=== PATIENT | female | born 1980 | race Caucasian/White ===

== ENCOUNTER 2018-07-31 20:04 | Inpatient (IN) | payer BC, OTHER ==
[2018-07-31 21:33] VITALS: BMI 33.5
[2018-07-31] MEDS ORDERED: MELATONIN 5 MG TABLETS PO PRN (22:00)
--- NOTE | 2018-07-31 23:06 | HP ---
CIWA Score - CIWA Score Nausea/Vomitin Muscle Tremors: 4-Moderate,w/Arms Extend Anxiety: 3 Agitation: 3 Paroxysmal Sweats: 1-Minimal Palms Moist Orientation: 0-Oriented Tacttile Disturbances: 0-None Auditory Disturbances: 0-None Visual Disturbances: 0-None Headache: 3-Moderate CIWA-Ar Total Score: 17 Admission ROS S - HPI Chief Complaint: Alcohol withdrawal symptoms Allergies/Adverse Reactions: Allergies Allergy/AdvReac Type Severity Reaction Status Date / Time No Known Allergies Allergy Verified 07/31/18 22:26 History of Present Illness: 38 years old female patient with 23 years of alcohol dependence is seeking admission to detox. This is patient's first admission to [facility] and first detox. She reports history of depression and denies suicidal ideation at this time. Exam Limitations: No Limitations - Ebola screening Have you traveled outside of the country in the last 21 days: No (N) Have you had contact with anyone from an Ebola affected area: No Have you been sick,other than usual withdrawal symptoms: No Do you have a fever: No - Review of Systems Constitutional: Chills, Loss of Appetite, Malaise, Changes in sleep, Weakness EENT: reports: No Symptoms Reported Respiratory: reports: No Symptoms reported Cardiac: reports: No Symptoms Reported GI: reports: No Symptoms Reported, Nausea, Poor Appetite, Poor Fluid Intake, Abdominal cramping : reports: No Symptoms Reported, Discharge Musculoskeletal: reports: No Symptoms Reported Integumentary: reports: Dryness Neuro: reports: Headache, Numbness, Tingling, Tremors Endocrine: reports: No Symptoms Reported Hematology: reports: No Symptoms Reported Psychiatric: reports: Orientated x3, Depressed Other Systems: Reviewed and Negative Patient History - Patient Medical History Hx Anemia: No Hx Asthma: No Hx Chronic Obstructive Pulmonary Disease (COPD): No Hx Cancer: No Hx Cardiac Disorders: No Hx Congestive Heart Failure: No Hx Hypertension: No Hx Hypercholesterolemia: No Hx Pacemaker: No HX Cerebrovascular Accident: No Hx Seizures: No Hx Dementia: No Hx Diabetes: No Hx Gastrointestinal Disorders: No Hx Genitourinary Disorders: No Hx Sexually Transmitted Disorders: No Hx Renal Disease (ESRD): No Hx Thyroid Disease: No Hx Human Immunodeficiency Virus (HIV): No (Negative 2017) Hx Hepatitis C: No Hx Depression: Yes (Not on medication.) Hx Suicide Attempt: No Hx Bipolar Disorder: No Hx Schizophrenia: No - Patient Surgical History Past Surgical History: No Hx Neurologic Surgery: No Hx Cataract Extraction: No Hx Cardiac Surgery: No Hx Lung Surgery: No Hx Breast Surgery: No Hx Breast Biopsy: No Hx Abdominal Surgery: No Hx Appendectomy: No Hx Cholecystectomy: No Hx Genitourinary Surgery: No Hx Section: No Hx Orthopedic Surgery: No Anesthesia Reaction: No - PPD History Previous Implant?: Yes Documented Results: Negative w/o proof Implanted On Prior [facility] Admission?: No Date: 07/31/18 PPD to be Administered?: No - Reproductive History Patient is a Female of Child Bearing Age (11 -55 yrs old): Yes Last Menstrual Period: 07/18/18 Patient : No - Smoking Cessation Smoking history: Former smoker Have you smoked in the past 12 months: No Hx Chewing Tobacco Use: No Initiated information on smoking cessation: No - Substance & Tx. History Hx Alcohol Use: Yes Hx Substance Use: No Substance Use Type: Alcohol Hx Substance Use Treatment: No - Substances Abused Alcohol Route: Oral Frequency: Daily Amount used: 6 SHOTS OF VODKA Age of first use: 27 Date of Last Use: 07/31/18 Family Disease History - Family Disease History Family History: Denies Admission Physical Exam [facility] - Vital Signs Vital Signs: Vital Signs - 24 hr 07/31/18 21:31 Temperature 98.6 F Pulse Rate 83 Respiratory 18 Rate Blood Pressure 122/84 - Physical General Appearance: Yes: Moderate Distress HEENTM: Yes: EOMI, Normal ENT Inspection, Normocephalic, Normal Voice, SEMAJ Respiratory: Yes: Lungs Clear, Normal Breath Sounds, No Respiratory Distress Neck: Yes: Supple Breast: Yes: Breast Exam Deferred Cardiology: Yes: Regular Rhythm, Regular Rate Abdominal: Yes: Normal Bowel Sounds, Flat Genitourinary: Yes: Within Normal Limits Back: Yes: Normal Inspection Musculoskeletal: Yes: Within Normal Limits Extremities: Yes: Tremors 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
[2018-07-31] MEDS ORDERED: MAGNESIUM HYDROX 2400MG/30ML ORAL SUSPENSION 30 ML CUP PO PRN (23:16)
[2018-07-31] MEDS ORDERED: guaiFENesin/D-METHORPHAN HB 10 ML UNIT-DOSE CUPS PO PRN (23:16)
[2018-07-31] MEDS ORDERED: chlordiazePOXIDE HCL 25 MG CAPSULE PO PRN (23:16)
[2018-07-31] MEDS ORDERED: MENTHOL/PHENOL 1 EACH UD MM PRN (23:16)
[2018-07-31] MEDS ORDERED: P-EPHED 60MG/TRIPROLIDI 2.5MG TABLET PO PRN (23:16)
[2018-07-31] MEDS ORDERED: LOPERAMIDE HCL 2 MG CAPSULE PO PRN (23:16)
[2018-07-31] MEDS ORDERED: MAGNESIUM CITRATE 300 ML BOTTLE PO PRN (23:16)
[2018-07-31] MEDS ORDERED: MAG HYDROX/AL HYDROX/SIMETH 30 ML UNIT-DOSE CUP PO PRN (23:16)
[2018-07-31] MEDS: chlordiazePOXIDE HCL 25 MG CAPSULE PO SCH (23:57)
[2018-08-01] MEDS: chlordiazePOXIDE HCL 25 MG CAPSULE PO SCH ×4 (06:27→22:11)
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
[2018-08-01 10:12] LABS: HEMOGLOBIN 13.3 GM/dL (10.7-15.3); MCH 30.7 pg (25.7-33.7); MCHC 32.5 g/dl (32.0-36.0); MEAN CELL VOLUME 94.3 fl (80-96); MEAN PLT VOLUME 8.3 fl (7.5-11.1); PLATELET COUNT 225 K/MM3 (134-434); RBC 4.34 M/mm3 (3.60-5.2); RDW 13.1 % (11.6-15.6); WHITE BLOOD COUNT 4.1 K/mm3 (4.0-10.0)
[2018-08-01 10:31] LABS: ALBUMIN 3.6 g/dl (3.4-5.0); ALK PHOS 77 U/L (45-117); ANION GAP 10 MMOL/L (8-16); BILIRUBIN,TOTAL 0.4 mg/dL (0.2-1); BLOOD UREA NITROGEN 10 mg/dL (7-18); CHLORIDE 106 mmol/L (98-107); CO2 26 mmol/L (21-32); CREATININE 0.5 mg/dL (0.55-1.3); GLUCOSE,RANDOM 86 mg/dL (74-106); POTASSIUM 3.9 mmol/L (3.5-5.1); SGOT/AST 61 U/L (15-37); SGPT/ALT 77 U/L (13-61); SODIUM 142 mmol/L (136-145)
[2018-08-01] MEDS: PRENATAL VITAMINS W/ FOLIC ACID TABLET (FP) PO SCH (10:43)
[2018-08-01] MEDS: ACETAMINOPHEN 325 MG TABLET (FP) PO PRN (10:45)
[2018-08-01] MEDS ORDERED: FLU VACCINE QUAD 60 MCG/0.5 ML (MDV 18-19) IM ONE (12:00)
--- NOTE | 2018-08-01 12:56 | PN ---
S CIWA - CIWA Score Nausea/Vomitin-Mild Nausea/No Vomiting Muscle Tremors: 2 Anxiety: 2 Agitation: 2 Paroxysmal Sweats: No Perspiration Orientation: 0-Oriented Tacttile Disturbances: 0-None Auditory Disturbances: 0-None Visual Disturbances: 0-None Headache: 3-Moderate CIWA-Ar Total Score: 10 BHS Progress Note (SOAP) Subjective: PATIENT C/O MILD NAUSEA, HEADACHE, ANXIETY AND RESTLESSNESS. Objective: 08/01/18 12:54 Laboratory Tests 08/01/18 08/01/18 08/01/18 07:00 07:00 07:00 WBC 4.1 RBC 4.34 Hgb 13.3 Hct 41.0 MCV 94.3 MCH 30.7 MCHC 32.5 RDW 13.1 Plt Count 225 MPV 8.3 Sodium 142 Potassium 3.9 Chloride 106 Carbon Dioxide 26 Anion Gap 10 BUN 10 Creatinine 0.5 L Creat Clearance w eGFR > 60 Random Glucose 86 Calcium 9.0 Total Bilirubin 0.4 AST 61 H ALT 77 H Alkaline Phosphatase 77 Total Protein 7.0 Albumin 3.6 RPR Titer HIV 1&2 Antibody Screen Negative HIV P24 Antigen Negative 08/01/18 07:00 WBC RBC Hgb Hct MCV MCH MCHC RDW Plt Count MPV Sodium Potassium Chloride Carbon Dioxide Anion Gap BUN Creatinine Creat Clearance w eGFR Random Glucose Calcium Total Bilirubin AST ALT Alkaline Phosphatase Total Protein Albumin RPR Titer Nonreactive HIV 1&2 Antibody Screen HIV P24 Antigen Vital Signs Temperature 98.4 F 08/01/18 09:05 Pulse Rate 75 08/01/18 09:05 Respiratory Rate 18 08/01/18 09:05 Blood Pressure 107/73 08/01/18 09:05 O2 Sat by Pulse Oximetry (%) SKIN WARM AND DRY CAR S1S2 RESP CTA BL EXT FULL ROM +TREMORS ALERT AND ORIENTED X 3. 08/01/18 12:55 Assessment: 08/01/18 12:55 WITHDRAWAL SX Plan: CONTINUE DETOX ENCOURAGE ORAL FLUIDS CONTINUE TO MONITOR CLINICALLY
[2018-08-01 14:31] LABS: URINE APPEARANCE CLOUDY; URINE BILIRUBIN NEGATIVE (<2.0 mg/dL); URINE GLUCOSE (UA) NEGATIVE (NEGATIVE); URINE KETONE NEGATIVE (NEGATIVE); URINE LEUK ESTERASE NEGATIVE (NEGATIVE); URINE NITRITE NEGATIVE (NEGATIVE); URINE PROTEIN NEGATIVE (NEGATIVE); URINE UROBILINOGEN NEGATIVE mg/dL (0.2-1.0)
[2018-08-01 14:40] LABS: URINE COLOR YELLOW
[2018-08-01] MEDS: THIAMINE HCL 100 MG TABLET (FP) PO SCH (22:11)
[2018-08-02] MEDS: chlordiazePOXIDE HCL 25 MG CAPSULE PO SCH ×3 (05:14→20:53)
[2018-08-02] MEDS: PRENATAL VITAMINS W/ FOLIC ACID TABLET (FP) PO SCH (10:08)
--- NOTE | 2018-08-02 18:11 | EKG ---
Test Reason : Blood Pressure : / mmHG Vent. Rate : 063 BPM Atrial Rate : 063 BPM P-R Int : 134 ms QRS Dur : 094 ms QT Int : 428 ms P-R-T Axes : 048 027 043 degrees QTc Int : 437 ms NORMAL SINUS RHYTHM NORMAL ECG NO PREVIOUS ECGS AVAILABLE Confirmed by DARON PARHAM MD ([id number]) on 08/02/2018 6:11:04 PM Referred By: Confirmed By:DARON PARHAM MD
--- NOTE | 2018-08-02 20:15 | PN ---
BHS CIWA - CIWA Score Nausea/Vomitin Muscle Tremors: 3 Anxiety: 3 Agitation: 2 Paroxysmal Sweats: 3 Orientation: 0-Oriented Tacttile Disturbances: 0-None Auditory Disturbances: 0-None Visual Disturbances: 0-None Headache: 0-None Present CIWA-Ar Total Score: 13 BHS Progress Note (SOAP) Subjective: shakes sweats sleep disturbance Objective: 08/02/18 20:14 A & O x 3 Ambulates steadily Vital Signs - 8 hr 08/02/18 08/02/18 14:04 18:17 Temperature 98.3 F 96.3 F L Pulse Rate 80 77 Respiratory 18 18 Rate Blood Pressure 95/66 113/79 Assessment: 08/02/18 20:15 withdrawal sx Plan: continue detox
[2018-08-02] MEDS: chlordiazePOXIDE 5 MG CAPSULE PO SCH (22:24)
[2018-08-02] MEDS: THIAMINE HCL 100 MG TABLET (FP) PO SCH (22:25)
[2018-08-02] MEDS: IBUPROFEN 400 MG TABLET (FP) PO PRN (22:26)
[2018-08-03] MEDS: chlordiazePOXIDE 5 MG CAPSULE PO SCH ×3 (05:18→20:31)
[2018-08-03] MEDS: PRENATAL VITAMINS W/ FOLIC ACID TABLET (FP) PO SCH (10:23)
[2018-08-03] MEDS: ACETAMINOPHEN 325 MG TABLET (FP) PO PRN (10:25)
--- NOTE | 2018-08-03 10:26 | PN ---
BHS Progress Note (SOAP) Subjective: feeling better no tremor less sweat sleep better at night f requests to see a psychiatrist Objective: 08/03/18 10:25 Vital Signs Temperature 97.2 F L 08/03/18 09:32 Pulse Rate 88 08/03/18 09:32 Respiratory Rate 18 08/03/18 09:32 Blood Pressure 98/73 08/03/18 09:32 O2 Sat by Pulse Oximetry (%) Laboratory Last Values WBC 4.1 K/mm3 (4.0-10.0) 08/01/18 07:00 RBC 4.34 M/mm3 (3.60-5.2) 08/01/18 07:00 Hgb 13.3 GM/dL (10.7-15.3) 08/01/18 07:00 Hct 41.0 % (32.4-45.2) 08/01/18 07:00 MCV 94.3 fl (80-96) 08/01/18 07:00 MCH 30.7 pg (25.7-33.7) 08/01/18 07:00 MCHC 32.5 g/dl (32.0-36.0) 08/01/18 07:00 RDW 13.1 % (11.6-15.6) 08/01/18 07:00 Plt Count 225 K/MM3 (134-434) 08/01/18 07:00 MPV 8.3 fl (7.5-11.1) 08/01/18 07:00 Sodium 142 mmol/L (136-145) 08/01/18 07:00 Potassium 3.9 mmol/L (3.5-5.1) 08/01/18 07:00 Chloride 106 mmol/L (98-107) 08/01/18 07:00 Carbon Dioxide 26 mmol/L (21-32) 08/01/18 07:00 Anion Gap 10 MMOL/L (8-16) 08/01/18 07:00 BUN 10 mg/dL (7-18) 08/01/18 07:00 Creatinine 0.5 mg/dL (0.55-1.3) L 08/01/18 07:00 Creat Clearance w eGFR > 60 (>60) 08/01/18 07:00 Random Glucose 86 mg/dL (74-106) 08/01/18 07:00 Calcium 9.0 mg/dL (8.5-10.1) 08/01/18 07:00 Total Bilirubin 0.4 mg/dL (0.2-1) 08/01/18 07:00 AST 61 U/L (15-37) H 08/01/18 07:00 ALT 77 U/L (13-61) H 08/01/18 07:00 Alkaline Phosphatase 77 U/L (45-117) 08/01/18 07:00 Total Protein 7.0 g/dl (6.4-8.2) 08/01/18 07:00 Albumin 3.6 g/dl (3.4-5.0) 08/01/18 07:00 Urine Color Yellow 08/01/18 10:20 Urine Appearance Cloudy 08/01/18 10:20 Urine pH 5.0 (5.0-8.0) 08/01/18 10:20 Ur Specific Art 1.026 (1.010-1.035) 08/01/18 10:20 Urine Protein Negative (NEGATIVE) 08/01/18 10:20 Urine Glucose (UA) Negative (NEGATIVE) 08/01/18 10:20 Urine Ketones Negative (NEGATIVE) 08/01/18 10:20 Urine Blood Negative (NEGATIVE) 08/01/18 10:20 Urine Nitrite Negative (NEGATIVE) 08/01/18 10:20 Urine Bilirubin Negative (<2.0 mg/dL) 08/01/18 10:20 Urine Urobilinogen Negative mg/dL (0.2-1.0) 08/01/18 10:20 Ur Leukocyte Esterase Negative (NEGATIVE) 08/01/18 10:20 RPR Titer Nonreactive (NONREACTIVE) 08/01/18 07:00 HIV 1&2 Antibody Screen Negative 08/01/18 07:00 HIV P24 Antigen Negative 08/01/18 07:00 lab noted Assessment: 08/03/18 10:25 mild withdrawal sx Plan: medically supervised detox
[2018-08-03] MEDS: chlordiazePOXIDE HCL 10 MG CAPSULE PO SCH (23:04)
[2018-08-03] MEDS: THIAMINE HCL 100 MG TABLET (FP) PO SCH (23:04)
[2018-08-04] MEDS: chlordiazePOXIDE HCL 10 MG CAPSULE PO SCH ×2 (06:21→10:35)
--- NOTE | 2018-08-04 08:45 | PN ---
Psychiatric Progress Note Vital Signs: Vital Signs Period Temp Pulse Resp BP Sys/Lewis Pulse Ox Last 24 Hr 96.4 F-97.8 F 70-92 16-20 98-130/62-80 Date of Session: 08/04/18 Chief Complaint:: Patient reports mptivations tomstart antideppressants HPI: Patient reports depressiove criteria prior,to admission, scheduled to be discharge today, asking to restart SSRI''s. Denies suicidfal, [id number] ideation Current Medications: Active Medications Generic Name Dose Route Start Last Admin Trade Name Freq PRN Reason Stop Dose Admin Acetaminophen 650 mg 07/31/18 23:16 08/03/18 10:25 Tylenol - PO 650 mg Q4H PRN Administration FEVER Al Hydroxide/Mg Hydroxide 30 ml 07/31/18 23:16 Mylanta Oral Suspension - PO Q6H PRN DYSPEPSIA Chlordiazepoxide HCl 10 mg 08/03/18 23:00 08/04/18 06:21 Librium - PO 08/04/18 17:01 10 mg [id number] AZALIA Administration Eucalyptus/Menthol/Phenol/Sorbitol 1 each 07/31/18 23:16 Cepastat Lozenge - MM Q4H PRN SORE THROAT Guaifenesin 10 ml 07/31/18 23:16 Robitussin Dm - PO Q6H PRN COUGH Ibuprofen 400 mg 07/31/18 23:16 08/02/18 22:26 Motrin - PO 400 mg Q6H PRN Administration PAIN LEVEL 4-6 Loperamide HCl 4 mg 07/31/18 23:16 Imodium - PO Q6H PRN DIARRHEA Magnesium Citrate 300 ml 07/31/18 23:16 Citroma - PO Q48H PRN CONSTIPATION Magnesium Hydroxide 30 ml 07/31/18 23:16 Milk Of Magnesia - PO DAILY PRN CONSTIPATION Melatonin 5 mg 07/31/18 22:00 08/01/18 22:11 Melatonin PO 5 mg HS PRN Administration INSOMNIA Multivit/Folic Acid/Iron 1 tab 08/01/18 10:00 08/03/18 10:23 Vitamins (Sjr) - PO 1 tab DAILY AZALIA Administration Pseudoephedrine/Triprolidine 1 combo 07/31/18 23:16 Actifed - PO TID PRN NASAL CONGESTION Thiamine HCl 100 mg 10/19/18 22:00 08/03/18 23:04 Vitamin B1 - PO 100 mg HS AZALIA Administration Medication(s) Change(s): none Provider note:: Patient was engaged in supportive psychotherapy, motivated max dejuan pharmacological intevention for sepression at Rehab Unit Mental Status Exam - Mental Status Exam Alert and Oriented to: Time, Place, Person Cognitive Function: Fair Patient Appearance: Well Groomed Mood: Apprehensive Affect: Mood Congruent Patient Behavior: Cooperative Speech Pattern: Appropriate Voice Loudness: Normal Thought Process: Goal Oriented Thought Disorder: Being Controlled Hallucinations: Denies Suicidal Ideation: Denies Homicidal Ideation: Denies Insight/Judgement: Fair Sleep: Difficulty falling asleep Appetite: Fair Muscle strength/Tone: Normal Gait/Station: Normal Additional Comments: Observation Psychiatric Treatment Plan - Problem List (1) Alcohol-induced mood disorder Current Visit: Yes (2) Alcohol dependence Current Visit: Yes (3) Alcohol dependence with uncomplicated withdrawal Current Visit: Yes (4) Depression Current Visit: Yes Initial treatment plan: Observation. Psychotherapy supportive
[2018-08-04 09:27] VITALS: BP 98/72; PULSE 99; TEMP 97.8
[2018-08-04] MEDS: PRENATAL VITAMINS W/ FOLIC ACID TABLET (FP) PO SCH (10:35)
[2018-08-04] MEDS: IBUPROFEN 400 MG TABLET (FP) PO PRN (10:37)
--- NOTE | 2018-08-04 12:01 | DS ---
[facility] Detox Discharge Summary Admission Date: 07/31/18 Discharge Date: 08/04/18 - History Present History: Alcohol Dependence Additional Comments: 38 years old female admitted on 07/31/18 for alcohol withdrawal sx completed alcohol detox regimen tolerated well denies alcohol withdrawal sx alert oriented x 3 no acute distress aftercare [facility] Pertinent Past History: patient wants to take antidepressant for depressive mood encourage the patient to work closely with the psychiatrist and psychotherapist - Physical Exam Results Vital Signs: Vital Signs Temperature 97.8 F 08/04/18 09:27 Pulse Rate 99 H 08/04/18 09:27 Respiratory Rate 18 08/04/18 09:27 Blood Pressure 98/72 08/04/18 09:27 O2 Sat by Pulse Oximetry (%) Pertinent Admission Physical Exam Findings: alcohol withdrawal sx Vital Signs Temperature 97.8 F 08/04/18 09:27 Pulse Rate 99 H 08/04/18 09:27 Respiratory Rate 18 08/04/18 09:27 Blood Pressure 98/72 08/04/18 09:27 O2 Sat by Pulse Oximetry (%) Laboratory Last Values WBC 4.1 K/mm3 (4.0-10.0) 08/01/18 07:00 RBC 4.34 M/mm3 (3.60-5.2) 08/01/18 07:00 Hgb 13.3 GM/dL (10.7-15.3) 08/01/18 07:00 Hct 41.0 % (32.4-45.2) 08/01/18 07:00 MCV 94.3 fl (80-96) 08/01/18 07:00 MCH 30.7 pg (25.7-33.7) 08/01/18 07:00 MCHC 32.5 g/dl (32.0-36.0) 08/01/18 07:00 RDW 13.1 % (11.6-15.6) 08/01/18 07:00 Plt Count 225 K/MM3 (134-434) 08/01/18 07:00 MPV 8.3 fl (7.5-11.1) 08/01/18 07:00 Sodium 142 mmol/L (136-145) 08/01/18 07:00 Potassium 3.9 mmol/L (3.5-5.1) 08/01/18 07:00 Chloride 106 mmol/L (98-107) 08/01/18 07:00 Carbon Dioxide 26 mmol/L (21-32) 08/01/18 07:00 Anion Gap 10 MMOL/L (8-16) 08/01/18 07:00 BUN 10 mg/dL (7-18) 08/01/18 07:00 Creatinine 0.5 mg/dL (0.55-1.3) L 08/01/18 07:00 Creat Clearance w eGFR > 60 (>60) 08/01/18 07:00 Random Glucose 86 mg/dL (74-106) 08/01/18 07:00 Calcium 9.0 mg/dL (8.5-10.1) 08/01/18 07:00 Total Bilirubin 0.4 mg/dL (0.2-1) 08/01/18 07:00 AST 61 U/L (15-37) H 08/01/18 07:00 ALT 77 U/L (13-61) H 08/01/18 07:00 Alkaline Phosphatase 77 U/L (45-117) 08/01/18 07:00 Total Protein 7.0 g/dl (6.4-8.2) 08/01/18 07:00 Albumin 3.6 g/dl (3.4-5.0) 08/01/18 07:00 Urine Color Yellow 08/01/18 10:20 Urine Appearance Cloudy 08/01/18 10:20 Urine pH 5.0 (5.0-8.0) 08/01/18 10:20 Ur Specific Trevor 1.026 (1.010-1.035) 08/01/18 10:20 Urine Protein Negative (NEGATIVE) 08/01/18 10:20 Urine Glucose (UA) Negative (NEGATIVE) 08/01/18 10:20 Urine Ketones Negative (NEGATIVE) 08/01/18 10:20 Urine Blood Negative (NEGATIVE) 08/01/18 10:20 Urine Nitrite Negative (NEGATIVE) 08/01/18 10:20 Urine Bilirubin Negative (<2.0 mg/dL) 08/01/18 10:20 Urine Urobilinogen Negative mg/dL (0.2-1.0) 08/01/18 10:20 Ur Leukocyte Esterase Negative (NEGATIVE) 08/01/18 10:20 RPR Titer Nonreactive (NONREACTIVE) 08/01/18 07:00 HIV 1&2 Antibody Screen Negative 08/01/18 07:00 HIV P24 Antigen Negative 08/01/18 07:00 lab noted - Treatment Hospital Course: Detox Protocol Followed, Detoxed Safely, Responded well, Discharged Condition Good, Rehab Referral Accepted Patient has Accepted a Rehab Referral [facility]: [facility] - Medication Discharge Medications: Ambulatory Orders NK [No Known Home Medication] 07/31/18 - Diagnosis (1) Alcohol dependence with uncomplicated withdrawal Current Visit: Yes Status: Acute (2) Alcohol-induced mood disorder Current Visit: Yes Status: Suspected (3) Depression (emotion) Current Visit: Yes Status: Suspected Qualifiers: Depression Type: dysthymia Qualified Code(s): F34.1 - Dysthymic disorder - AMA Did Patient Leave Against Medical Advice: No
== END 2018-08-04 12:38 | disposition home or self-care (01) | DRG 897 ==
LOC: YASAS 20:04 → EDBD 22:26 → Y6N 22:26
PROC: HZ2ZZZZ Detoxification Services for Substance Abuse Treatment (ICD-10-PCS; principal; 2018-07-31)
DX: F10.230 Alcohol dependence with withdrawal, uncomplicated (principal); F10.24 Alcohol dependence with alcohol-induced mood disorder; F34.1 Dysthymic disorder; Z87.891 Personal history of nicotine dependence
CPT/HCPCS: 36415; 80053; 81003; 85027; 86593; 87389; 90688; 93005; 93010; G0008